=== PATIENT | female | born 1945 | race Caucasian/White ===

== ENCOUNTER → 2020-12-24 | Outpatient (CLI) | payer MEDICARE ==
[~2020-12-24] MED LIST: ASCO100018 PO; ASPI325T17 PO; CALC0.254 PO; CALC1SOL PO; CALC200T3 PO; CALC300T5 PO; CHOL20002 PO; CYAN250L PO; ERGO500017 PO; LEVO100T74 PO; LEVO150T PO; LORA-439 PO; METH5TAB6 PO; METO100T5 PO; OXYC1TAB7 PO; OXYC5CAP2 PO; POTA90TA2 PO; RIVA10TA2 PO; RIVA15TA PO; VITA80004 PO; ZOLP-413 PO; [UNRECOGNIZED DRUG - OTHER]; [UNRECOGNIZED DRUG - OTHER] PO; [UNRECOGNIZED DRUG - OTHER] PO; [UNRECOGNIZED DRUG - OTHER] PO; [UNRECOGNIZED DRUG - OTHER] PO; [UNRECOGNIZED DRUG - OTHER] PO; [UNRECOGNIZED DRUG - OTHER] PO; probiotics PO
== END | disposition home or self-care (01) ==
LOC: CFH 14:50
PROVIDERS: ATTEND Internal Medicine Cardiovascular Disease
DX: I08.8 Other rheumatic multiple valve diseases (principal); I48.19 Other persistent atrial fibrillation; I10 Essential (primary) hypertension; I27.21 Secondary pulmonary arterial hypertension
CPT/HCPCS: 93306